=== PATIENT | female | born 1990 | race Caucasian/White ===

== ENCOUNTER 2016-06-09 11:44 | Emergency (ER) | payer MEDICAID, OTHER ==
[~2016-06-09 11:44] MED LIST: PRENCAP6 PO
[2016-06-09] MEDS ORDERED: METH500T PO (11:51)
[2016-06-09 12:15] VITALS: PULSE 121
[2016-06-09] MEDS ORDERED: ONDANSETRON HCL 4 MG/2 ML VIAL IV ONE (12:15)
[2016-06-09 12:20] VITALS: PULSE 122
[2016-06-09 12:23] VITALS: BP 129/91; PULSE 122
[2016-06-09 12:25] VITALS: PULSE 121
[2016-06-09] MEDS ORDERED: ONDANSETRON ODT 4 MG TAB PO ONE (12:30)
[2016-06-09] MEDS ORDERED: ACETAMIN 325 MG/BUTALBITAL 50 MG/CAFFEINE 40 MG TAB PO ONE (12:30)
--- NOTE | 2016-06-09 12:53 | PD ---
HPI Chief Complaint headache Date Seen: Jun 09, 2016 Time Seen: 12:30 Travel History International Travel<30 Days: No Contact w/Intl Traveler<30Days: No Known Affected Area: No History of Present Illness HPI Pt is a 25 y/o with IUP t 29.6 wks who presents with c/o headache x 2 days. Pt reports headache location behind eyes and at base of skull, constant, started Friday. No relief with tylenol--took several doses since headache started, last dose today at 830 am. Denies sinus symptoms, URI symptoms, congestion. Pt tried steam shower with no improvement in symptoms. denies fever. Pt has h/o gestational hypertension and has been taking aldomet for BP control during . Pt reports dose increased from 500 mg bid to 1000 mg bid about 1.5 wks ago. Assc symptoms: pt reports one episode of spots in vision this am when she got up, but otherwise no visual complaints over the weekend. Pt reports possible mild swelling of fingers/face. She reports some mild nausea, no vomiting since this am. Pt states it was difficult to fall asleep secondary to headache last night. She denies RUQ pain. She denies contractions, vb, lof, vag discharge. +FM Para: 1 : 3 Miscarriage: 1 : 0 History Past Medical History Narrative Medical neg Medical History: Denies Significant Hx Past Surgical History Surgical History: No Previous Surgery Family History Family History: Negative Social History Narrative Social History former smoker, quit 11/2015 Alcohol Use: No Tobacco Use: No Substance Abuse: No Allergies-Medications (Allergen,Severity, Reaction): Coded Allergies: Lamictal (Verified Allergy, Severe, RASH, 06/09/16) Home Meds Reported Medications Methyldopa 500 Mg Tab1,000 Mg PO BID Ref 0 06/09/16 Mv & Min W/Fe Fumarat ( 1) Cap1 Cap PO 09/13/15 Review of Systems General / Constitutional: No: Fever, Weight Gain, Weight Loss, Chills, Other Eyes: Other (one episode of spots in vision), No: Diploplia, Blurred Vision, Visual changes, Pain, Photophobia HENT: Headaches Cardiovascular: No: Irregular Rhythm, Chest Pain or Discomfort, Palpitations, Tachycardia, Syncope, Varicosities, Edema, Cyanosis, Other Respiratory: No: Cough, Short of Breath, Wheezing, Other Gastrointestinal: No: Nausea, Vomiting, Diarrhea, Abdominal Pain, Hematemesis, Hematochezia, Constipation, Changes in Bowel Habits, Indigestion, Loss of Appetite, Other Genitourinary: No: Urgency, Frequency, Dysuria, Nocturia, Hematuria, Decreased Urinary Output, Oliguria, Hesitancy, Dribbling, Incontinence, Pelvic Pain, Dyspareunia, Discharge, Menorrhagia, Vaginal Bleeding, Other Musculoskeletal: No: Limited ROM, Weakness, Cramping, Edema, Pain, Other Skin: No Rash, No Itching, No Dryness, No Lumps, No Change in Pigmentation, No Change in Nails, No Alopecia, No Lesions, No Breast Lumps, No Breast Tenderness , No Breast Swelling, No Other Neurologic: Headache, No: Weakness, Dizziness, Syncope, Focal Abnormalities, Coordination Problem, Slurred Speech, Seizures, Other Psychiatric: No: Anxiety, Depression, Suicidal Ideations, Disorder of Thought, Mood Disorder, Substance Abuse, Homicidal Ideation, Other Endocrine: No: Heat Intolerance, Cold Intolerance, Polydipsia, Polyuria, Other Hematologic/Lymphatic: No Easy Bruising, No Lymph Node Enlargement, No Other Physical Exam Narrative GENERAL: Well-nourished, well-developed patient. SKIN: Warm and dry. HEAD: Normocephalic and atraumatic. EYES: No scleral icterus. No injection or drainage. ENT: No nasal drainage noted. Mucous membranes pink. Airway patent. NECK: Supple, trachea midline. No JVD. CARDIOVASCULAR: Mild tachycardia, no murmurs, gallops, or rubs. RESPIRATORY: Breath sounds equal bilaterally. No accessory muscle use. ABDOMEN/GI: Abdomen soft, non-tender, bowel sounds present, no rebound, no guarding gravid GENITOURINARY: External Genitalia: deferred Membranes: intact Uterine Contractions: none FHT's: Category: 1 Baseline: 140 Reactive: no, reassuring for gestational age Variability: moderate Decels: none EXTREMITIES: No cyanosis or edema. BACK: Nontender without obvious deformity. No CVA tenderness. NEUROLOGICAL: Awake and alert. Motor and sensory grossly within normal limits. Five out of 5 muscle strength in all muscle groups. Normal speech. 2+ patellar and biceps reflexes bilaterally Data Data Vital Signs Reviewed: Yes (BP 136/94, 126/83, 129/91, pulse 120s) Orders Vital Signs (Adult) .ON ADMISSION (06/09/16 12:15) ^ Labor Status (06/09/16 12:15) Urinalysis - C+S If Indicated (06/09/16 12:15) Diet Liquid (06/09/16 Lunch) ^ Hydration (06/09/16 12:15) Cbc No Diff, Includes Plts (06/09/16 12:15) Comprehensive Metabolic Panel (06/09/16 12:15) Uric Acid (06/09/16 12:15) Ondansetron Inj (Zofran Inj) (06/09/16 12:15) Ondansetron Odt (Zofran Odt) (06/09/16 12:30) Tdku-Fshak-Mtlm 325-50-40 Mg (Fioricet 3 (06/09/16 12:30) Labs Laboratory Tests Test 06/09/16 06/09/16 11:30 12:30 Urine Ketones TRACE mg/dL (NEG) Urine Urobilinogen 8.0 MG/DL (LESS THAN 2.0) Urine Leukocyte Esterase MOD (NEG) Urine Mucus FEW /lpf (OCC) White Blood Count 14.8 TH/MM3 (4.0-11.0) Blood Urea Nitrogen 6 MG/DL (7-18) Aspartate Amino Transf 8 U/L (15-37) (AST/SGOT) Total Protein 6.3 GM/DL (6.4-8.2) Albumin 2.8 GM/DL (3.4-5.0) Allergies Coded Allergies Lamictal (Verified Allergy, Severe, RASH, 06/09/16) Orders-Cade Gardner MD Procedure Category Date Status Time Vital Signs (Adult) ROBERT 06/09/16 In Process 12:15 ^ Labor Status ROBERT 06/09/16 In Process 12:15 Diet Liquid DIET 06/09/16 Transmitted Lunch ^ Hydration ROBERT 06/09/16 In Process 12:15 Laboratory Tests per Hali Test 06/09/16 12:30 White Blood Count 14.8 TH/MM3 Red Blood Count 4.01 MIL/MM3 Sodium Level 138 MEQ/L Potassium Level 3.9 MEQ/L Blood Urea Nitrogen 6 MG/DL Active Scripts Active Reported Methyldopa 500 Mg Tab 1,000 Mg PO BID 1 ( Multivitamins) Cap 1 Cap PO MDM Medical Record Reviewed: Yes Narrative Course / MDM 25 y/o with IUP at 29.6 wks with headache, h/o gest htn on aldomet --fiorcet and zofran ordered for headache and nausea, po hydration --rule out preeclampsia--exam unremarkable, PIH labs ordered reevaluation: headache improved s/p fioricet PIH labs reviewed--unremarkable Plan d/c home f/u with Dr. Alvarado as scheduled tomorrow preeclampsia precautions return for worsening symptoms Diagnosis Diagnosis: Primary Impression: Headache Qualified Code: R51 - Acute nonintractable headache, unspecified headache type Additional Impression: 29 weeks gestation of Disposition: DISCHARGE HOME Condition: Stable Cade Gardner MD Jun 09, 2016 12:52
[2016-06-09 12:58] LABS: HEMATOCRIT 37.4 % (35.0-46.0); MEAN CELL VOLUME 93.2 FL (80.0-100.0); MEAN CORPUSCULAR HEMOGLOBIN 32.1 PG (27.0-34.0); MEAN CORPUSCULAR HGB CONC 34.5 % (32.0-36.0); PLATELET COUNT 239 TH/MM3 (150-450); RED BLOOD COUNT 4.01 MIL/MM3 (4.00-5.30); REVIEW FLAG FINAL; WHITE BLOOD COUNT 14.8 TH/MM3 (4.0-11.0)
[2016-06-09 13:10] LABS: BLOOD, URINE NEG (NEG); COMMENT (UR) CULT NOT INDICATED; CULTURE IF INDICATED CULT NOT INDICATED; GLUCOSE,URINE NEG (NEG); KETONE, URINE TRACE mg/dL (NEG); MUCUS URINE FEW /lpf (OCC); NITRITE,URINE NEG (NEG); PH, URINE 6.5 (5.0-8.5); RENAL EPITHELIAL CELLS <1 /hpf; SQUAMOUS EPITHELIAL CELL URINE 3 /hpf (0-5); URINE COLOR YELLOW (YELLW/STRAW)
[2016-06-09 13:14] LABS: ALT (GPT) 14 U/L (10-53); ANION GAP 9 MEQ/L (5-15); AST (GOT) 8 U/L (15-37); BICARBONATE 22.9 MEQ/L (21.0-32.0); BLOOD UREA NITROGEN 6 MG/DL (7-18); CHLORIDE 106 MEQ/L (98-107); GLOMERULAR FILTRATION RATE 121 ML/MIN (>89); POTASSIUM 3.9 MEQ/L (3.5-5.1); SODIUM (NA) 138 MEQ/L (136-145); URIC ACID 4.2 MG/DL (2.6-6.0)
[2016-06-09 13:16] LABS: ALKALINE PHOSPHATASE 77 U/L (45-117); TOTAL BILIRUBIN ADULT 0.3 MG/DL (0.2-1.0)
[2016-06-09 13:55] VITALS: RESP 18
== END 2016-06-09 13:56 | disposition home or self-care (01) ==
LOC: HOBED 11:44
DX: O26.93 Pregnancy related conditions, unspecified, third trimester (principal); R51 Headache; O16.3 Unspecified maternal hypertension, third trimester; R00.0 Tachycardia, unspecified; Z87.891 Personal history of nicotine dependence; Z3A.29 29 weeks gestation of pregnancy
CPT/HCPCS: 36415; 80053; 81001; 84550; 85027

== ENCOUNTER 2016-07-24 19:56 | Inpatient (IN) | payer MEDICAID ==
[~2016-07-24] VITALS: Ht 165.1 cm; Wt 95.0 kg
[2016-07-24] VITALS (11 sets, daily range): BP systolic 124–155; BP diastolic 71–103; PULSE 101–114; TEMP 98.3
[~2016-07-24 19:56] MED LIST changes: +METH500T PO
--- NOTE | 2016-07-24 20:40 | PD ---
HPI Chief Complaint High blood pressure Date Seen: Jul 24, 2016 Time Seen: 20:29 Travel History International Travel<30 Days: No Contact w/Intl Traveler<30Days: No Known Affected Area: No History of Present Illness HPI Patient is a 25-year-old female Ab1 who is at 36 weeks and 2 days comes in complaining of high blood pressure at home and generalized malaise. Patient states that her hypertension was diagnosed this at approximately 26 weeks' gestation and was initially treated with Aldomet 500 mg twice a day and this was increased to Aldomet 1000 mg twice daily. Patient is complaining of a mild headache today . And lower extremity and hand edema for the past 2 weeks. She states that she did do blood work with the initial diagnosis of hypertension but has never done a 24-hour urine collection. Para: 1 : 3 Last Menstrual Period: Jul 24, 2016 (HERI 08/19) Miscarriage: 1 History Past Medical History Medical History: Denies Significant Hx Obstetric History Obstetric History Spontaneous vaginal delivery Miscarriage Past Surgical History Surgical History: No Previous Surgery Family History Family History: Negative Social History Alcohol Use: No Tobacco Use: No Substance Abuse: No Allergies-Medications (Allergen,Severity, Reaction): Coded Allergies: Lamictal (Verified Allergy, Severe, RASH, 06/09/16) Home Meds Reported Medications Methyldopa 500 Mg Tab1,000 Mg PO BID Ref 0 06/09/16 Mv & Min W/Fe Fumarat ( 1) Cap1 Cap PO 09/13/15 Review of Systems Except as stated in HPI: all other systems reviewed are Neg Physical Exam Blood pressure is 153/103 maternal pulse is 115 respirations are 18 Narrative GENERAL: Well-nourished, well-developed patient. SKIN: Warm and dry. HEAD: Normocephalic and atraumatic. EYES: No scleral icterus. No injection or drainage. ENT: No nasal drainage noted. Mucous membranes pink. Airway patent. NECK: Supple, trachea midline. No JVD. CARDIOVASCULAR: Regular rate and rhythm without murmurs, gallops, or rubs. RESPIRATORY: Breath sounds equal bilaterally. No accessory muscle use. BREASTS: Bilateral exam showed no masses , no retractions, no nipple discharge. ABDOMEN/GI: Abdomen soft, non-tender, bowel sounds present, no rebound, no guarding Gravid to [-36] weeks size Fundal Height: [-] GENITOURINARY: External Genitalia: intact and normal in appearance BUS glands: [-] Cervix: [-] Dilatation: [-] Effacement: [-] Station: [-] Presentation: [-] Membranes: [intact or ruptured] Uterine Contractions: [-] FHT's: Category: [-1] Baseline: [-160] Reactive: [Moderate-] Variability: [Moderate-] Decels: [Absent-] EXTREMITIES: No cyanosis. 2+ edema BACK: Nontender without obvious deformity. No CVA tenderness. NEUROLOGICAL: Awake and alert. Motor and sensory grossly within normal limits. Five out of 5 muscle strength in all muscle groups. Normal speech. Data Data Orders Vital Signs (Adult) .ON ADMISSION (07/24/16 20:25) ^ Labor Status (07/24/16 20:25) Urinalysis - C+S If Indicated (07/24/16 20:25) Cbc No Diff, Includes Plts (07/24/16 20:25) Uric Acid (07/24/16 20:25) Basic Metabolic Panel (Bmp) (07/24/16 20:25) Ast (Sgot) (07/24/16 20:25) Labs Laboratory Tests Test 07/24/16 20:30 White Blood Count 14.2 TH/MM3 Red Blood Count 4.20 MIL/MM3 Hemoglobin 13.6 GM/DL Hematocrit 39.4 % Mean Corpuscular Volume 93.8 FL Mean Corpuscular Hemoglobin 32.4 PG Mean Corpuscular Hemoglobin 34.6 % Concent Red Cell Distribution Width 14.8 % Platelet Count 254 TH/MM3 Mean Platelet Volume 9.5 FL Urine Color LIGHT-YELLOW Urine Turbidity CLEAR Urine pH 6.5 Urine Specific [place] 1.006 Urine Protein NEG mg/dL Urine Glucose (UA) NEG mg/dL Urine Ketones NEG mg/dL Urine Occult Blood NEG Urine Nitrite NEG Urine Bilirubin NEG Urine Urobilinogen LESS THAN 2.0 MG/DL Urine Leukocyte Esterase SMALL Urine RBC LESS THAN 1 /hpf Urine WBC 12 /hpf Urine Squamous Epithelial <1 /hpf Cells Urine Mucus FEW /lpf Microscopic Urinalysis Comment CULTURE INDICATED Sodium Level 138 MEQ/L Potassium Level 4.0 MEQ/L Chloride Level 107 MEQ/L Carbon Dioxide Level 23.7 MEQ/L Anion Gap 7 MEQ/L Blood Urea Nitrogen 6 MG/DL Creatinine 0.60 MG/DL Estimat Glomerular Filtration 121 ML/MIN Rate Random Glucose 78 MG/DL Uric Acid 4.5 MG/DL Calcium Level 9.8 MG/DL Aspartate Amino Transf 14 U/L (AST/SGOT) [facility] Medical Record Reviewed: Yes Plan 25yo at 36-37 weeks gestation with known chronic hypertension diagnosed this . BP has improved back to her baseline after patient took her Aldomet at home. Normal PIH labs, no proteinuria Persistent tachycardia noted despite IV fluids, will observe for extended monitoring 24 hr Urine protein initiated Diagnosis Diagnosis: Primary Impression: Chronic hypertension affecting Additional Impressions: tachycardia affecting management of mother 36 weeks gestation of Alva Alvarez MD Jul 24, 2016 20:40
[2016-07-24 20:54] LABS: HEMATOCRIT 39.4 % (35.0-46.0); MEAN CELL VOLUME 93.8 FL (80.0-100.0); MEAN CORPUSCULAR HEMOGLOBIN 32.4 PG (27.0-34.0); MEAN CORPUSCULAR HGB CONC 34.6 % (32.0-36.0); PLATELET COUNT 254 TH/MM3 (150-450); RED CELL DISTRIBUTION WIDTH 14.8 % (11.6-17.2); REVIEW FLAG FINAL; WHITE BLOOD COUNT 14.2 TH/MM3 (4.0-11.0)
[2016-07-24 21:06] LABS: BLOOD, URINE NEG (NEG); COMMENT (UR) CULTURE INDICATED; CULTURE IF INDICATED CULTURE INDICATED; GLUCOSE,URINE NEG (NEG); KETONE, URINE NEG (NEG); MUCUS URINE FEW /lpf (OCC); NITRITE,URINE NEG (NEG); PH, URINE 6.5 (5.0-8.5); SQUAMOUS EPITHELIAL CELL URINE <1 /hpf (0-5); URINE COLOR LIGHT-YELLOW (YELLW/STRAW)
[2016-07-24 21:19] LABS: BICARBONATE 23.7 MEQ/L (21.0-32.0); URIC ACID 4.5 MG/DL (2.6-6.0)
[2016-07-24] MEDS ORDERED: ZOLPIDEM TARTRATE 5 MG TAB PO PRN (21:45)
[2016-07-24] MEDS ORDERED: ACETAMINOPHEN 325 MG TAB PO PRN (21:45)
[2016-07-24] MEDS ORDERED: SODIUM CHLORIDE 0.9% FLUSH 5 ML FLUSH IVF PRN (21:45)
[2016-07-25] VITALS (48 sets, daily range): BP systolic 111–159; BP diastolic 63–106; PULSE 84–116; RESP 16–22; TEMP 97.8–98.4
[2016-07-25] MEDS: LACTATED RINGER'S 1000 ML IV SCH ×3 (01:00→07:53)
[2016-07-25] MEDS ORDERED: NS 500 ML BOLUS IV PRN (04:15)
[2016-07-25] MEDS ORDERED: OXYTOCIN 30 UNITS 500ML PREMIX IV ONE (04:15)
[2016-07-25] MEDS ORDERED: LIDOCAINE HCL 1% 50 ML VIAL INFIL PRN (04:15)
[2016-07-25] MEDS ORDERED: LIDOCAINE HCL 1% 50 ML VIAL I-DERMAL PRN (04:15)
[2016-07-25] MEDS ORDERED: CITRIC ACID-SODIUM CITRATE LIQ 30 ML UDC PO SCH (04:15)
[2016-07-25] MEDS ORDERED: NS 1000 ML IV PRN (04:15)
[2016-07-25] MEDS ORDERED: LACTATED RINGER'S 1000 ML BOLUS IV PRN (04:15)
[2016-07-25] MEDS ORDERED: ONDANSETRON HCL 4 MG/2 ML VIAL IV PRN (04:15)
[2016-07-25] MEDS ORDERED: fentaNYL 2MCG-BUPIV 0.125% INJ 100 ML ONE (07:42)
[2016-07-25] MEDS ORDERED: SODIUM CHLORIDE 0.9% FLUSH 5 ML FLUSH IVF SCH (09:00)
[2016-07-25] MEDS ORDERED: METHYLDOPA 500 MG TAB PO SCH (09:00)
[2016-07-25] MEDS ORDERED: BUPIVACAINE HCL PF 0.25% 10 ML VIAL ONE (09:23)
[2016-07-25] MEDS ORDERED: fentaNYL 2MCG-BUPIV 0.125% 100 ML EPIDURAL SCH (09:30)
[2016-07-25] MEDS ORDERED: NO SYSTEM NARCOTICS XX PRN (09:30)
[2016-07-25] MEDS ORDERED: DO NOT ADMINISTER ANTICOAGULANTS XX PRN (09:30)
[2016-07-25] MEDS ORDERED: ePHEDrine/NS 25 MG/5 ML SYR IV PRN (09:30)
--- NOTE | 2016-07-25 10:09 | PD.OB.DELI ---
Delivery Date: Jul 25, 2016 Anesthesia: Epidural Episiotomy: None Vaginal Delivery: Normal, Spontaneous Presentation: Occiput anterior Nuchal Cord: None, Other (true knot in cord) Delayed cord clamping (45 sec): Yes Infant: Male, Single One Minute : 8 Five Minute : 8 Weight: 7# Care: Spontaneous crying Placenta: Spontaneous delivery, Intact, 3 vessel cord Laceration: Vaginal laceration, 1 deg Repair: Chromic interrupted Jeremiah Alvarado MD Jul 25, 2016 10:09
[2016-07-25] MEDS: MINERAL OIL 10 ML VIAL TOP PRN ×2 (10:13→10:19)
[2016-07-25] MEDS ORDERED: WITCH HAZEL 50%/GLYCERIN 12.5% 40 PAD JAR TOPICAL PRN (11:15)
[2016-07-25] MEDS ORDERED: ACETAMINOPHEN 325 MG TAB PO PRN (11:15)
[2016-07-25] MEDS ORDERED: SODIUM CHLORIDE 0.9% FLUSH 5 ML FLUSH IV PRN (11:15)
[2016-07-25] MEDS ORDERED: BENZOCAINE 20% TOPICAL SPRAY 60 ML CAN TOPICAL PRN (11:15)
[2016-07-25] MEDS ORDERED: ONDANSETRON ODT 4 MG TAB PO PRN (11:15)
[2016-07-25] MEDS ORDERED: ZOLPIDEM TARTRATE 5 MG TAB PO PRN (11:15)
[2016-07-25] MEDS ORDERED: ALUMINUM/MAGNESIUM/SIMETH 30 ML CUP PO PRN (11:15)
[2016-07-25] MEDS ORDERED: DOCUSATE SODIUM 50 MG/SENNA 8.6 MG TAB PO PRN (11:15)
[2016-07-25] MEDS: IBUPROFEN 600 MG TAB PO PRN ×2 (11:51→18:14)
[2016-07-25] MEDS: oxyCODONE/ACETAMINOPHEN 5 MG/325 MG TAB PO PRN ×2 (15:34→20:39)
[2016-07-25] MEDS ORDERED: MEASLES, MUMPS, RUBELLA VACCINE 0.5 ML VIAL SQ ONE (16:00)
[2016-07-25] MEDS ORDERED: DIPHTH/TETANUS/ACEL PERTUSSIS (BOOSTER) 0.5 ML VIAL/PFS IM ONE (16:00)
[2016-07-25] MEDS ORDERED: SODIUM CHLORIDE 0.9% FLUSH 5 ML FLUSH IV SCH (21:00)
[2016-07-26] MEDS: IBUPROFEN 600 MG TAB PO PRN ×3 (00:26→15:30)
[2016-07-26] MEDS: oxyCODONE/ACETAMINOPHEN 5 MG/325 MG TAB PO PRN ×3 (00:26→12:46)
[2016-07-26 01:00] VITALS: BP 134/87; PULSE 97; RESP 20; TEMP 98
--- NOTE | 2016-07-26 07:38 | HHI.OB ---
Subjective Post Day: 1 Remarks doing well Objective Vitals/I&O Vital Signs Date Time Temp Pulse Resp B/P Pulse Ox O2 Delivery O2 Flow Rate FiO2 07/26/16 01:00 98.0 97 20 134/87 07/25/16 22:00 98.0 101 18 118/79 07/25/16 15:30 98.2 94 18 139/77 07/25/16 12:30 98.4 18 07/25/16 12:30 111 159/91 07/25/16 12:00 98.2 111 18 159/91 07/25/16 11:51 109 130/74 07/25/16 11:30 18 07/25/16 11:15 89 133/86 07/25/16 10:45 93 131/87 07/25/16 10:30 98.3 07/25/16 10:30 100 134/88 07/25/16 10:15 105 127/81 07/25/16 10:15 18 07/25/16 10:12 109 126/84 07/25/16 09:35 98 07/25/16 09:30 109 07/25/16 09:30 22 07/25/16 09:25 103 07/25/16 09:21 92 141/88 07/25/16 09:20 106 07/25/16 09:15 113 126/84 07/25/16 09:10 123/67 07/25/16 09:10 86 07/25/16 09:05 84 07/25/16 09:00 92 121/81 07/25/16 08:55 87 126/83 07/25/16 08:50 106 115/73 07/25/16 08:45 109 119/79 07/25/16 08:45 20 07/25/16 08:40 98 117/78 07/25/16 08:35 103 135/90 07/25/16 08:30 106 125/86 07/25/16 08:30 17 07/25/16 08:25 105 132/87 07/25/16 08:25 103 07/25/16 08:20 116 133/96 07/25/16 08:15 16 07/25/16 08:15 106 136/89 07/25/16 08:10 100 140/95 07/25/16 08:09 101 138/106 07/25/16 08:08 101 141/104 07/25/16 08:05 98 07/25/16 08:05 96 145/96 07/25/16 08:01 97 142/93 Objective Remarks GENERAL: Well-nourished, well-developed patient. . ABDOMEN/GI: Abdomen soft, non-tender. Fundus: Firm, non-tender at umbilicus. GENITOURINARY: Light to moderate bleeding. EXTREMITIES: No cyanosis or edema, non-tender, without signs of DVT. Medications and IVs Current Medications Medications (Trade) Dose Ordered Sig/Blanca Route Start Time Stop Time Status Last Admin Miscellaneous Information No systemic narcotics to be given except... UNSCH PRN XX 07/25/16 09:30 07/26/16 09:29 Miscellaneous Information DO NOT ADMINISTER ANY ANTICOAGUL... UNSCH PRN XX 07/25/16 09:30 07/26/16 09:29 (NS Flush) 2 ml BID IV 07/25/16 21:00 (NS Flush) 2 ml UNSCH PRN IV 07/25/16 11:15 (Tylenol) 650 mg Q4H PRN PO 07/25/16 11:15 07/25/16 12:55 (Motrin) 600 mg Q6H PRN PO 07/25/16 11:15 07/26/16 00:26 (Americaine 20% Top Spr) 1 spray Q4H PRN TOPICAL 07/25/16 11:15 07/25/16 12:54 (Tucks Pads) 1 applic QID PRN TOPICAL 07/25/16 11:15 07/25/16 12:54 (Britt-Colace) 2 tab Q12H PRN PO 07/25/16 11:15 (Ambien) 5 mg HS PRN PO 07/25/16 11:15 (Mag-Al Plus Susp Liq) 15 ml Q8H PRN PO 07/25/16 11:15 (Zofran Odt) 4 mg Q6H PRN PO 07/25/16 11:15 (Percocet 5-325 Mg) 1 tab Q4H PRN PO 07/25/16 15:30 07/26/16 00:26 (Percocet 5-325 Mg) 2 tab Q4H PRN PO 07/25/16 15:30 07/25/16 15:34 (Flu (Quadrivalent) Vaccine Inj) 0.5 ml ONCE ONCE IM 07/26/16 10:00 07/26/16 10:01 Assessment/Plan Problem List: (1) Spontaneous vaginal delivery Discharge Planning [facility] Jeremiah Alvarado MD Jul 26, 2016 07:38
--- NOTE | 2016-07-26 07:50 | HHI.DCPOC ---
Discharge Care Plan Diagnosis: (1) Spontaneous vaginal delivery Report Symptoms to Your Doctor -Temperate above 100.5 degrees -Redness, of incision or excessive or foul smelling drainage -Unusual pain or calf pain -Increased vaginal bleeding -Painful or difficulty urinating -Feelings of extreme sadness or anxiety after 2 weeks Goals to Promote Your Health * To prevent worsening of your condition and complications * To maintain your health at the optimal level Directions to Meet Your Goals Take your medications as prescribed Follow your dietary instruction Follow activity as directed Ensure plenty of rest for recovery Drink fluids for hydration Keep your appointments as scheduled Take your immunizations and boosters as scheduled If your symptoms worsen call your PCP, if no PCP go to Urgent Care Center or Emergency Room Smoking is Dangerous to Your Health. Avoid second hand smoke Call the 24-hour crisis hotline for domestic abuse at Jeremiah Alvarado MD Jul 26, 2016 07:50
[2016-07-26 08:00] VITALS: BP 137/87; PULSE 89; RESP 18; TEMP 98.4
[2016-07-26] MEDS ORDERED: INFLUENZA VIRUS VACCINE (QUADRIVALENT) 0.5 ML SYR IM ONE (10:00)
[2016-07-26 15:30] VITALS: BP 132/86; PULSE 88; RESP 18; TEMP 98.6
[2016-07-26] MEDS ORDERED: OXYC1TAB63 PO (16:41)
--- NOTE | 2016-07-26 16:42 | HHI.DS ---
Admission Date Jul 25, 2016 at 03:19 Discharge Date: Jul 26, 2016 Admitting Diagnosis Diagnosis: (1) Spontaneous vaginal delivery Diagnosis: Principal Delivery Date: Jul 25, 2016 Vaginal Delivery: Normal, Spontaneous : Male, Single Brief History Patient is a 25-year-old female Ab1 who is at 36 weeks and 2 days comes in complaining of high blood pressure at home and generalized malaise. Patient states that her hypertension was diagnosed this at approximately 26 weeks' gestation and was initially treated with Aldomet 500 mg twice a day and this was increased to Aldomet 1000 mg twice daily. Patient is complaining of a mild headache today . And lower extremity and hand edema for the past 2 weeks. She states that she did do blood work with the initial diagnosis of hypertension but has never done a 24-hour urine collection. Hospital Course without difficulty Pt Condition on Discharge: Good Discharge Disposition: Discharge Home Discharge Instructions Diet Instructions: As Tolerated, No Restrictions Activities You Can Perform: Pelvic Rest Activities to Avoid: Driving for 24 hrs Follow up Referrals: [facility] 2 Weeks @ [facility] with Jeremiah Alvarado MD New Medications: Oxycodone-Acetaminophen (Oxycodone-Acetaminophen) 5-325 mg Tab 1 TAB PO Q4H PRN PAIN SCALE 1 TO 5 #20 TAB Continued Medications: Mv & Min W/Fe Fumarat ( 1) Cap 1 CAP PO CAP Discontinued Medications: Methyldopa (Methyldopa) 500 Mg Tab 1000 MG PO BID Blood Pressure Management Ref 0 TAB Jeremiah Alvarado MD Jul 26, 2016 16:42
== END 2016-07-26 17:48 | disposition home or self-care (01) | DRG 775 ==
LOC: HOBED 19:56 → H2EA 21:46 → OBSVTOIN 07-25 03:19 → H2EB 07-25 03:24 → H1EA 07-25 12:19
PROVIDERS: ADMIT Obstetrics & Gynecology; ATTEND Obstetrics & Gynecology
PROC: 10E0XZZ Delivery of Products of Conception, External Approach (ICD-10-PCS; principal; 2016-07-25)
PROC: 0HQ9XZZ Repair Perineum Skin, External Approach (ICD-10-PCS; 2016-07-25)
PROC: 4A1HX4Z Monitoring of Products of Conception, Cardiac Electrical Activity, External Approach (ICD-10-PCS; 2016-07-25)
PROC: 3E0S3CZ (ICD-10-PCS; 2016-07-25)
PROC: 00HU33Z Insertion of Infusion Device into Spinal Canal, Percutaneous Approach (ICD-10-PCS; 2016-07-25)
DX: O13.3 Gestational [pregnancy-induced] hypertension without significant proteinuria, third trimester (principal); O76 Abnormality in fetal heart rate and rhythm complicating labor and delivery; O69.2XX0 Labor and delivery complicated by other cord entanglement, with compression, not applicable or unspecified; O70.0 First degree perineal laceration during delivery; Z3A.36 36 weeks gestation of pregnancy; Z37.0 Single live birth; Z23 Encounter for immunization
CPT/HCPCS: 59025; 80048; 81001; 84112; 84450; 84550; 85027; 87086; 90686; 90715; 96360; J3010; J7120; Q2038